=== PATIENT | female | born 1990 | race Caucasian/White ===

== ENCOUNTER 2019-06-27 22:30 | Emergency (ER) | payer SELFPAY ==
[~2019-06-27] VITALS: Ht 170.2 cm; Wt 45.4 kg
[2019-06-27 22:42] VITALS: BP 129/76
== END 2019-06-28 02:27 | disposition left against medical advice (07) ==
LOC: ER 22:30
DX: M79.10 Myalgia, unspecified site (principal); Z53.21 Procedure and treatment not carried out due to patient leaving prior to being seen by health care provider